=== PATIENT | male | born 1980 | race Caucasian/White ===

== ENCOUNTER 2017-12-02 09:17 | Day surgery (SDC) | payer MEDICAID ==
--- NOTE | 2017-12-02 07:59 | PDANEPAE ---
ANE History of Present Illness B da Jessie assist bilateral inguinal hernia repair ANE Past Medical History - Cardiovascular History Hx Hypertension: No Hx Arrhythmias: Yes Hx Chest Pain: No Hx Coronary Artery / Peripheral Vascular Disease: No Hx CHF / Valvular Disease: No Hx Palpitations: No Cardiovascular History Comment: states has a mild arrhythmia noticed at sports physical when age 10 but no work up and no treatment/follow up since. - Pulmonary History Hx COPD: No Hx Asthma/Reactive Airway Disease: Yes Hx Recent Upper Respiratory Infection: No Hx Oxygen in Use at Home: No Hx Sleep Apnea: No Sleep Apnea Screening Result - Last Documented: Negative Pulmonary History Comment: exercise induced asthma as a child/teen - Neurologic History Hx Cerebrovascular Accident: No Hx Seizures: No Hx Dementia: No - Endocrine History Hx Diabetes: No - Renal History Hx Renal Disorders: No - Liver History Hx Hepatic Disorders: No - Neurological & Psychiatric Hx Hx Neurological and Psychiatric Disorders: Yes Neurological / Psychiatric History Comment: anxiety - Cancer History Hx Cancer: No - Congenital Disorder History Hx Congenital Disorders: No - GI History Hx Gastrointestinal Disorders: Yes Gastrointestinal History Comment: irritable bowel - Other Health History Other Health History: front bottom tooth gum/nerve pain, radiates to left ear, dentist following - Chronic Pain History Chronic Pain: No - Surgical History Prior Surgeries: oral surgery for wisdom tooth extraction ANE Review of Systems Review of systems is: negative Review of Systems: - Exercise capacity METS (RN): 4 METS ANE Patient History - Allergies Allergies/Adverse Reactions: No Known Allergies Allergy (Verified 12/02/17 09:38) - Home Medications Home medications: home medication list seen and reviewed Home Medications: Vitamin B Complex 11/26/17 [Last Taken 11/25/17] - NPO status NPO Since - Liquids (Date): 12/02/17 NPO Since - Liquids (Time): 08:30 NPO Since - Solids (Date): 12/01/17 - Anes Hx Anes Hx: no prior problems Hx Anesthesia Complications (with details): dehydration - Smoking Hx Smoking Status: Never smoked - Family Anes Hx Family Anes Hx: none Family Hx Anesthesia Complications: none ANE Labs/Vital Signs - Vital Signs Height: 177.8 cm Weight: 99.79 kg ANE Physical Exam - Airway Neck exam: FROM Mallampati Score: Class 2 Mouth exam: normal dental/mouth exam - Pulmonary Pulmonary: no respiratory distress - Cardiovascular Cardiovascular: regular rate and rhythym - ASA Status ASA Status: II ANE Anesthesia Plan Anesthesia Plan: general endotracheal anesthesia
[2017-12-02] MEDS ORDERED: ceFAZolin 2 GM/DEXTROSE 100 ML IV ONE (09:28)
[2017-12-02] MEDS ORDERED: LIDOCAINE 1% 2 ML INJ ID PRN (09:29)
[2017-12-02] MEDS ORDERED: LR 1,000 ML IV ONE (09:29)
[2017-12-02] MEDS ORDERED: MIDAZOLAM 2 MG/2 ML VIAL IVP ONE (09:31)
[2017-12-02] MEDS ORDERED: BUPIVACAINE/EPI 0.5% 30 ML SDV ONE (09:32)
--- NOTE | 2017-12-02 09:46 | PDHPUP ---
History & Physical Update H&P update statement: This history and physical update is based on an assessment of the patient which was completed after admission or registration (within 24 hours), but prior to the surgery/procedure. H&P update: H&P reviewed & patient examined, no change in patient's condition since H&P completed
[2017-12-02] MEDS ORDERED: LIDOCAINE 2% 100 MG/5 ML SYR ONE (10:25)
[2017-12-02] MEDS ORDERED: PROPOFOL 200 MG/20 ML VIAL ONE (10:25)
[2017-12-02] MEDS ORDERED: DEXAMETHASONE 4 MG/ML VIAL ONE (10:25)
[2017-12-02] MEDS ORDERED: SUGAMMADEX SODIUM 200 MG/2 ML VIAL IVP ONE (10:25)
[2017-12-02] MEDS ORDERED: ROCURONIUM 50 MG/5 ML VIAL ONE (10:25)
[2017-12-02] MEDS ORDERED: ONDANSETRON 4 MG/2 ML VIAL ONE ×2 (10:25→12:05)
[2017-12-02] MEDS ORDERED: fentaNYL 250 MCG/5 ML INJ ONE (10:25)
[2017-12-02] MEDS ORDERED: ONDANSETRON 4 MG/2 ML VIAL IVP PRN (11:00)
[2017-12-02] MEDS ORDERED: ACETAMINOPHEN 500 MG TAB PO PRN (11:00)
[2017-12-02] MEDS ORDERED: PROMETHAZINE HCL 25 MG/ML INJ IVP PRN (11:00)
[2017-12-02] MEDS ORDERED: HYDROmorphONE/DILAUDID 2 MG/ML INJ IVP PRN (11:00)
[2017-12-02] MEDS ORDERED: DEXAMETHASONE 4 MG/ML VIAL IVP PRN (11:00)
[2017-12-02] MEDS ORDERED: MEPERIDINE 25 MG/0.5 ML AMP IVP PRN (11:00)
[2017-12-02] MEDS ORDERED: oxyCODONE IR 5 MG TAB PO PRN (11:00)
[2017-12-02] MEDS ORDERED: NALOXONE HCL 0.4 MG/ML INJ IVP PRN (11:00)
[2017-12-02] MEDS ORDERED: HYDROCODONE/APAP 5/325 TAB PO PRN (11:00)
--- NOTE | 2017-12-02 11:02 | POSTANESTH ---
Post Anesthetic Evaluation Cardiovascular Status: Normal, Stable, Similar to Pre-Op Cond Respiratory Status: Normal, Stable, Similar to Pre-op Cond. Level of Consciousness/Mental Status: Can Participate in Eval, Mildly Sleepy, Arousable Pain Control: Adequate, Prn Tx Ordered Nausea/Vomiting Control: Adequate, Prn Tx Ordered Complications Possibly Related to Anesthesia: None Noted
[2017-12-02] MEDS ORDERED: KETOROLAC 30 MG/1 ML SDV ONE (11:25)
--- NOTE | 2017-12-02 11:30 | POSTOPPROG ---
Post Op Note Date of Operation: 12/02/17 Surgeon: Dustin Snow Retail Experience Specialist: ROHIT Quiroz Anesthesiologist: Ana Anesthesia: GET(General Endotracheal) Pre-op Diagnosis: Left inguinal hernia Post-op Diagnosis: same Procedure: Robotic assisted LIH c mesh Findings: mod direct defect Inf/Abcess present in the surg proc area at time of surgery?: No EBL: Minimal
[2017-12-02] MEDS ORDERED: fentaNYL 100 MCG/2 ML INJ ONE (11:46)
[2017-12-02] MEDS: fentaNYL 100 MCG/2 ML INJ IVP PRN ×2 (11:47→12:01)
[2017-12-02] MEDS ORDERED: HYDROCODONE/APAP 5/325 TAB ONE (12:04)
[2017-12-02] MEDS ORDERED: PROMETHAZINE HCL 25 MG/ML INJ ONE (12:15)
[2017-12-02] MEDS ORDERED: ACETAMINOPHEN 500 MG TAB ONE (13:55)
[2017-12-02 14:47] VITALS: BP 132/77
--- NOTE | 2017-12-05 05:35 | GOP ---
DATE OF OPERATION: 12/02/2017 SURGEON: Dustin Snow MD FENCE RIDER: Alize Sanders CFA. ANESTHESIA: General endotracheal ANESTHESIOLOGIST: Manuel Wilson MD. PREOPERATIVE DIAGNOSIS: Left inguinal hernia. POSTOPERATIVE DIAGNOSIS: Left inguinal hernia. PROCEDURE PERFORMED: Robotic-assisted laparoscopic left inguinal hernia repair with mesh. FINDINGS: Moderate-sized direct defect repaired with Bard 3D Light large-size mesh. SPECIMENS: None. DESCRIPTION OF PROCEDURE: The patient was greeted in the preoperative suite. Once again, risks, yi efits, and alternatives were discussed. Consent was then signed. He was then brought back to the op erative suite, placed on the OR table in the supine position. After all anesthesia machines includin g SCDs were on and functioning, [employer] time-out was performed. After successful i nduction of general anesthesia, the patient's abdomen was prepped and draped in typical sterile fashi on. I commenced the procedure by making a supraumbilical cutdown through which the Veress needle was passed. I achieved pneumoperitoneum to 15 mmHg which was well tolerated by the patient. Through th is I inserted an 8 mm trocar. Once successfully in the abdomen I inserted 2 additional 8 mm trocars, 1 in the right and 1 in the left upper quadrant, both under direct visualization. I then placed the patient in gentle Trendelenburg position and the robot was successfully docked. I first interrogate d the right side and found no any suspicious defects. I turned my attention toward the left side whe re a moderate-sized direct defect was identified. I made my peritoneal flap just adjacent to the ASI S all the way medial to the pubic tubercle. I carried this down to Uli's ligament medially as wel l as the extent of the dissection laterally. I skeletonized the cord structures all the way down to the visceral sac and reduced the hernia from the direct defect. There was no femoral or obturator or indirect components identified. Once skeletonized appropriately, I brought in my mesh. It was tack ed to Uli's ligament medially as well as medially around the defect itself, as well as either side of the inferior epigastric vessels. Once this was done, I turned my attention toward closing the pe ritoneal defect, which was done with a running 2-0 V-Loc suture. I briefly interrogated the remainde r of the anatomy and found no other suspicious findings. I evacuated pneumoperitoneum. I closed the skin with Monocryl over which Dermabond was placed. The patient was then extubated in the operative suite and taken to the PACU in satisfactory condition. DRAINS: None. COUNTS: All counts were reported as correct x2. /[id number]/MODL
== END 2017-12-02 15:03 | disposition home or self-care (01) ==
LOC: FSGY 09:17
PROVIDERS: ATTEND Surgery
DX: K40.90 Unilateral inguinal hernia, without obstruction or gangrene, not specified as recurrent (principal)
CPT/HCPCS: C1781; J0690; J1100; J1885; J2001; J2250; J2405; J2550; J2704; J3010